=== PATIENT | male | born 1970 | race Caucasian/White ===

== ENCOUNTER 2017-04-03 12:32 | Emergency (ER) | payer OTHER ==
--- NOTE | 2017-04-03 12:56 | PDOC ---
History of Present Illness - General Chief Complaint: Sore Throat Stated Complaint: SORE THROAT FOR 4 DAYS WITH WHITE PATCHES TO THRO Time Seen by Provider: 04/03/17 12:41 - History of Present Illness Initial Comments: 04/03/17 12:55 46-year-old male with a negative past medical history He is on no medications, NKDA He is complaining of sore throat since Saturday, with initially some fevers and chills at onset He continues to have a sore throat, and painful swallowing with decreased appetite He noted some white patches on his tonsils today, prompting him to come to the emergency department He denies any fevers today He denies any earache or cough He denies any vomiting or diarrhea He denies any other complaints at this time and the remainder the review of systems is negative Past History - Past Medical History Allergies/Adverse Reactions: Allergies Allergy/AdvReac Type Severity Reaction Status Date / Time No Known Allergies Allergy Unverified 04/03/17 12:45 Home Medications: Ambulatory Orders Amoxicillin - [Amoxicillin 500mg Capsule -] 500 mg PO TID #21 capsule 04/03/17 Other medical history: DENIES - Psycho/Social/Smoking Cessation Hx Anxiety: No Suicidal Ideation: No Smoking History: Never smoked Have you smoked in the past 12 months: No Information on smoking cessation initiated: No Hx Alcohol Use: No Drug/Substance Use Hx: No Substance Use Type: None *Physical Exam - Vital Signs Last Vital Signs Temp Pulse Resp BP Pulse Ox 98.8 F 85 16 157/105 100 04/03/17 12:35 04/03/17 12:35 04/03/17 12:35 04/03/17 12:35 04/03/17 12:35 - Physical Exam Comments: 04/03/17 12:57 Physical exam Last Vital Signs Temp Pulse Resp BP Pulse Ox 98.8 F 85 16 157/105 100 04/03/17 12:35 04/03/17 12:35 04/03/17 12:35 04/03/17 12:35 04/03/17 12:35 Patient is alert and ambulatory and answering questions, speaking without difficulty Head is normocephalic and atraumatic Mouth and oropharynx-there is bilateral tonsillitis with exudate Neck is supple with some shotty adenopathy Lungs clear Heart regular Grossly nonfocal neurologic exam Medical Decision Making - Medical Decision Making 04/03/17 13:45 Rapid strep positive Will treat with amoxicillin Impression-strep tonsillitis 04/03/17 13:51 Discussed patient's blood pressure with him-he states BP is always high and he does not want to take any medications He states that his doctor is aware *DC/Admit/Observation/Transfer Diagnosis at time of Disposition: Strep throat - Discharge Dispostion Disposition: HOME Condition at time of disposition: Good - Prescriptions Prescriptions: Amoxicillin - [Amoxicillin 500mg Capsule -] 500 mg PO TID #21 capsule - Patient Instructions Printed Discharge Instructions: Strep Throat Additional Instructions: Amoxicillin-one pill 3 times a day for a week Tylenol or Motrin for discomfort Increase fluid intake Followup with your primary care physician in 24-48 hours Return immediately if you worsen in any way Take your medications as directed Please discuss your blood pressure again with your primary care physician! - Post Discharge Activity Work/School Note: Back to Work
[2017-04-03 13:01] VITALS: TEMP 98.8; BMI 25.7
[2017-04-03] MEDS ORDERED: AMOXICILLIN 500 MG CAPSULE (FP) PO ONE (13:47)
[2017-04-03] MEDS ORDERED: AMOXICILLIN 250 MG CAPSULE ONE (13:49)
[2017-04-03 13:52] VITALS: BP 141/103; PULSE 91
== END 2017-04-03 13:59 | disposition home or self-care (01) ==
LOC: FER 12:32
DX: J02.0 Streptococcal pharyngitis (principal)
CPT/HCPCS: 87070; 87077; 87430; 99282-25